=== PATIENT | female | born 1965 | race Caucasian/White ===

== ENCOUNTER 2020-03-11 13:47 | Outpatient (CLI) | payer BC, SELFPAY ==
--- NOTE | 2020-03-11 14:00 | MM_ITS ---
WS: [id number] SCREENING DIGITAL MAMMOGRAM WITH CAD HISTORY: SCREEN COMPARISON: 11/09/2017, 11/08/2018, 11/27/2017 and 09/23/2016 Bilateral CC and MLO views submitted. Computer aided detection analyzed. Breast composition: There are scattered areas of fibroglandular density. Ovoid 12 mm mass in the posterior medial RIGHT breast. New since the prior examination. There is a lo bulated nodule in the central LEFT breast medially which has been present on multiple prior years. RIGHT breast: Spot compression views (CC and MLO). True ML. Ultrasound to follow if abnormality persi sts. MM/[place] [id number] IMPRESSION: BI-RADS: 0-Incomplete: Need additional imaging evaluation FOLLOW UP: Need Additional Imaging
== END 2020-03-11 13:48 | disposition home or self-care (01) ==
LOC: RADSHAW 13:54
PROVIDERS: PCP Family Medicine; Visit Provider Family Medicine
DX: Z12.31 Encounter for screening mammogram for malignant neoplasm of breast (principal); N63.20 Unspecified lump in the left breast, unspecified quadrant
CPT/HCPCS: 77067

== ENCOUNTER 2020-03-27 09:25 | Outpatient (CLI) | payer BC, SELFPAY ==
--- NOTE | 2020-03-27 09:34 | US_ITS ---
WS: [id number] ADDITIONAL VIEWS RIGHT BREAST Ultrasound RIGHT breast, limited HISTORY: RT BREAST MASS COMPARISON: 11/09/2017, 03/11/2020, 11/27/2017 Compression views right CC and MLO projection. True ML also submitted. Ovoid asymmetry persists measuring 12 mm in the posterior medial RIGHT breast. Slightly elongated and tubular. RIGHT breast ultrasound: Limited. Ultrasound is directed to the medial posterior RIGHT breast along the chest wall. Small cluster cyst at 4:00, 1 cm from the nipple. This would not correspond to the finding on mammogram. There is an ad ditional ovoid hypoechoic nodule in the posterior RIGHT breast at 3:00 measuring 1.2 x 0.6 x 0.4 cm w hich has the shape and size of the mammographic abnormality. By ultrasound this is probably a small c luster of cysts or fibroglandular tissue. US/US breast RT limited* [id number] IMPRESSION: BI-RADS: 3-Probably Benign FOLLOW-UP: 6 Month Follow-up RIGHT mammogram and ultrasound follow-up in 6 months.
== END 2020-03-27 09:26 | disposition home or self-care (01) ==
LOC: RADSHAW 09:29
PROVIDERS: PCP Family Medicine; Visit Provider Family Medicine
DX: N63.14 Unspecified lump in the right breast, lower inner quadrant (principal); N63.15 Unspecified lump in the right breast, overlapping quadrants
CPT/HCPCS: 76642; 77065

== ENCOUNTER 2020-10-06 09:30 | Outpatient (CLI) | payer BC, SELFPAY ==
--- NOTE | 2020-10-06 09:37 | MM_ITS ---
WS: [id number] RIGHT DIGITAL MAMMOGRAPHY WITH CAD CLINICAL INFORMATION: 6 MO F/U RT BREAST NODULE COMPARISON: March 27, 2020 TECHNIQUE: 5 views of the right breast were obtained. FINDINGS: Scattered fibroglandular densities of the right breast. Stable 12 mm ovoid asymmetry in the posterior medial right breast is unchanged in appearance. Ultrasound is pending ULTRASOUND BREAST RIGHT TECHNIQUE: Ultrasound right breast focused area of concern. CLINICAL INFORMATION: 6 MO F/U RT BREAST NODULE COMPARISON: None. FINDINGS: Ultrasound right breast 4:00 position 1 cm from the nipple. Stable appearing hypoechoic lesion at the 4:00 position measuring 7.1 x 4.7 x 6.2 mm likely represents a small cluster of complex cysts. This is unchanged in appearance since the prior examination. This is probably benign. Additional ovoid hypoechoic lesion at the 2:00 position 4 cm from the nipple is also similar in appea ricardo and likely represents a small cluster of cysts or small complex cyst with internal debris. This is probably benign. MM/[place] [id number] IMPRESSION: BI-RADS: 3-Probably Benign FOLLOW UP: 6 Month Follow-up RECOMMEND ADDITIONAL 6 MONTH FOLLOW-UP RIGHT BREAST DIAGNOSTIC MAMMOGRAPHY AND ULTRASOUND TO CONFIRM STABILITY.
== END 2020-10-06 09:31 | disposition home or self-care (01) ==
LOC: RADSHAW 09:33
PROVIDERS: PCP Family Medicine; Visit Provider Family Medicine
DX: N63.12 Unspecified lump in the right breast, upper inner quadrant (principal)
CPT/HCPCS: 76642; 77065

== ENCOUNTER 2021-05-06 10:17 | Outpatient (CLI) | payer BC, SELFPAY ==
--- NOTE | 2021-05-06 10:24 | MM_ITS ---
WS: [id number] Bilateral diagnostic digital mammogram, 05/06/2021 Clinical Data: RT BREAST NODULE Comparison: 10/06/2020, 03/27/2020, 03/11/2020, 11/08/2018, 05/28/2018, 11/27/2017, 11/09/2017, 09/23/2016, 08/06/2015, 07/29/2015, 04/17/2014, 03/04/2014, 10/04/2010, 02/05/2009, 02/08/2007. Findings: Both breasts show fibroglandular tissue. There are densities in both breasts unchanged. No spiculated masses or clustered calcifications are seen. There are no secondary signs of carcinoma. MM/[place] [id number] Impression: 1. Negative bilateral mammograms unchanged. 2. Repeat right breast ultrasound BIRADS: 2-Benign FOLLOW UP: See Report The CAD title checker was used.
--- NOTE | 2021-05-06 10:24 | US_ITS ---
WS: [id number] Right breast ultrasound, 05/06/2021 Clinical Data: RT BREAST NODULE Comparison: Right Breast ultrasound, 10/06/2020. Findings: At the 2:00 position 4 cm from the nipple there is an ovoid structure measuring 0.19 x 0.4 x 0.59 cm which has the appearance of a duct. This has not changed from the prior study. The ultrasound at the 4:00 position 1 cm from the nipple shows a benign cyst. This cyst has a slightl y mixed echo texture and is probably a complex cyst. It measures 0.35 x 0.49 x 0.69 cm. US/US breast RT limited* [id number] Impression: 1. Probable small duct at the 2:00 position 4 cm from the nipple. 2. Complex cyst at the 4:00 position 1 cm from the nipple unchanged. 3. Return to annual screening mammograms. BIRADS: 2-Benign FOLLOW UP: 1 Year Follow-up
== END 2021-05-06 10:18 | disposition home or self-care (01) ==
LOC: RADSHAW 10:22
PROVIDERS: PCP Family Medicine; Visit Provider Family Medicine
DX: N63.10 Unspecified lump in the right breast, unspecified quadrant (principal); N60.01 Solitary cyst of right breast
CPT/HCPCS: 76642; 77066

== ENCOUNTER → 2023-12-06 15:10 | Outpatient (BNVA) | payer OTHER, SELFPAY | PROVIDERS: PCP Family Medicine; Visit Provider Nurse Practitioner Women's Health | DX: Z12.4 Encounter for screening for malignant neoplasm of cervix (principal) | CPT/HCPCS: 87624 ==

== ENCOUNTER 2023-12-27 09:41 | Outpatient (CLI) | payer OTHER, SELFPAY ==
--- NOTE | 2023-12-27 09:44 | MM_ITS ---
WS: [id number] BILATERAL SCREENING DIGITAL TOMOSYNTHESIS MAMMOGRAM WITH CAD HISTORY: Z12.39 - Encounter for other screening for malignant neop... COMPARISON: 05/06/2021, 10/05/2020 Bilateral CC and MLO views with tomosynthesis and synthetic mammography submitted. Computer aided det ection analyzed. Breast composition: There are scattered areas of fibroglandular density. No suspicious masses, microc alcifications or architectural distortion. Decrease in size of the previously described mass in the m edial LEFT breast seen on the CC projection. No new or enlarging masses. No suspicious calcification. IMPRESSION: MM/[place] [id number] BI-RADS: 2-Benign FOLLOW UP: 1 Year Follow-up
== END 2023-12-27 09:42 | disposition home or self-care (01) ==
LOC: RAD 09:41
PROVIDERS: PCP Family Medicine; Visit Provider Family Medicine
DX: Z12.31 Encounter for screening mammogram for malignant neoplasm of breast (principal)
CPT/HCPCS: 77063; 77067

== ENCOUNTER 2025-07-11 10:20 | Outpatient (CLI) | payer OTHER, SELFPAY ==
--- NOTE | 2025-07-11 10:20 | MM_ITS ---
WS: [id number] BILATERAL SCREENING DIGITAL TOMOSYNTHESIS MAMMOGRAM WITH CAD HISTORY: Z12.39 - Encounter for other screening for malignant neop... COMPARISON: 12/27/2023, 03/11/2020, 05/06/2021, 11/08/2018 Bilateral CC and MLO views with tomosynthesis and synthetic mammography submitted. Computer aided detection analyzed. Breast composition: There are scattered areas of fibroglandular density. No suspicious masses, microcalcifications or architectural distortion. Long-term stability lobulated 8 mm mass in the medial LEFT breast. No suspicious grouping of calcifications. MM/MM scr BI tomosynthesis [id number] IMPRESSION: BI-RADS: 2 - Benign. FOLLOW UP: 1 Year Follow-up
== END 2025-07-11 10:21 | disposition home or self-care (01) ==
LOC: RAD 10:21
PROVIDERS: PCP Family Medicine; Visit Provider Obstetrics & Gynecology
DX: Z12.31 Encounter for screening mammogram for malignant neoplasm of breast (principal); R92.323 Mammographic fibroglandular density, bilateral breasts; N63.22 Unspecified lump in the left breast, upper inner quadrant
CPT/HCPCS: 77063; 77067